=== PATIENT | female | born 1970 | race American Indian/Alaskan Native ===

== ENCOUNTER 2022-11-16 16:28 | Emergency (ER) | payer SELFPAY | END 2022-11-16 16:55 | disposition left against medical advice (07) | LOC: JD.ED 16:28 | DX: Z53.21 Procedure and treatment not carried out due to patient leaving prior to being seen by health care provider (principal) ==

== ENCOUNTER 2023-08-20 18:25 | Emergency (ER) | payer SELFPAY ==
[2023-08-20] MEDS ORDERED: Albuterol/Ipratropium 3.0-0.5 MG/3 ML Neb Soln NEB ONE (18:59)
[2023-08-20] MEDS ORDERED: predniSONE 20 MG Tab PO ONE (19:00)
[2023-08-20] MEDS ORDERED: Losartan 50 MG Tab PO ONE ×2 (19:01→19:54)
[2023-08-20 19:26] LABS: APPEARANCE,URINE CLEAR (Clear); BILIRUBIN,URINE NEGATIVE (Negative); COLOR,URINE DARK YELLOW (Yellow); GLUCOSE,URINE NEGATIVE (Negative); KETONES,URINE 1+ (Negative); NITRITE,URINE POSITIVE (Negative); OCCULT BLOOD,URINE NEGATIVE (Negative); PH,URINE 5.5 (5.0-8.0); PROTEIN,URINE 3+ (Negative)
[2023-08-20 19:37] LABS: CORONAVIRUS COVID-19 NAA NEGATIVE (NEGATIVE); INFLUENZA A NAA NEGATIVE (NEGATIVE); RESPIRATORY SYNCYTIAL VIR NAA NEGATIVE (NEGATIVE)
[2023-08-20 20:02] LABS: LEUKOCYTE ESTERASE,URINE NEGATIVE (Negative); RBC,URINE 0-5 /hpf (0-5); WBC,URINE 75-100 /hpf (0-5)
[2023-08-20 20:03] LABS: BACTERIA,URINE MODERATE /hpf (FEW); MUCUS,URINE MODERATE /hpf (FEW); YEAST BUDDING,URINE FEW (NOT SEEN)
== END 2023-08-20 20:15 | disposition home or self-care (01) ==
LOC: JD.ED 18:25
DX: N39.0 Urinary tract infection, site not specified (principal); J06.9 Acute upper respiratory infection, unspecified; I10 Essential (primary) hypertension; K21.9 Gastro-esophageal reflux disease without esophagitis; E03.9 Hypothyroidism, unspecified; F17.210 Nicotine dependence, cigarettes, uncomplicated; Z79.899 Other long term (current) drug therapy; Z20.822 Contact with and (suspected) exposure to COVID-19
CPT/HCPCS: 0241U; 71046; 81001; 87086; 87651; 94640; 99285; A9270; J7512; 99283; J7620-GY